=== PATIENT | male | born 1965 | race Caucasian/White ===

== ENCOUNTER 2018-08-21 11:57 | Emergency (ER) | payer MEDICAID ==
[~2018-08-21] VITALS: Ht 165.1 cm; Wt 70.5 kg
[2018-08-21 12:03] VITALS: BP 139/80; PULSE 80; RESP 18; Ht 165.1 cm; Wt 70.5 kg
[2018-08-21] MEDS ORDERED: HYDR-4011 PO (13:59)
[2018-08-21] MEDS ORDERED: NAPR-985 PO (13:59)
[2018-08-21] MEDS ORDERED: CEPH-443 PO (13:59)
[2018-08-21] MEDS ORDERED: SULF1TAB31 PO (13:59)
--- NOTE | 2018-08-21 14:18 | ERD ---
ER Documentation Chief Complaint Chief Complaint LEFT BUTTOCK WOUND PROBLEM HPI 52-year-old male presenting for wound on left buttock. Patient was seen by an [facility] at [facility] a week ago and had incision and drainage performed at that time. Patient has been taking medication but does not recall the name of the medications. He states he had a incision and drainage performed and has continued having pain at the localized site. Denies other medical problems. NKDA. Surgical history denies. Social history denies ROS All systems reviewed and are negative except as per history of present illness. Medications Home Meds Active Scripts Naproxen* (Naprosyn*) 500 Mg Tablet, 500 MG PO BID PRN for PAIN AND/OR INFLAMMATION, #30 TAB Prov:JINA ABURTO PA-C 08/21/18 Hydrocodone/Acetaminophen ([place] 5-325 Tablet) 1 Each Tablet, 1 TAB PO Q6H PRN for PAIN, #7 TAB Prov:JINA ABURTO PA-C 08/21/18 Cephalexin* (Keflex*) 500 Mg Capsule, 500 MG PO QID for 7 Days, CAP Prov:JINA ABURTO PA-C 08/21/18 Sulfamethoxazole/Trimethoprim* (Bactrim Ds* Tablet) 1 Each Tablet, 1 TAB PO BID, #14 TAB Prov:JINA ABURTO PA-C 08/21/18 FmHx Family History: No diabetes, No coronary disease, No other Physical Exam Vitals Vital Signs Date Temp Pulse Resp B/P (MAP) Pulse Ox O2 O2 Flow FiO2 Time Delivery Rate 08/21/18 98.9 80 18 139/80 99 12:03 (99) Physical Exam GENERAL: The patient is well-appearing, well-nourished, in no acute distress CHEST: Clear to auscultation bilaterally. There are no rales, wheezes or rhonchi. HEART: Regular rate and rhythm. No murmurs, clicks, rubs or gallops. EXTREMITIES: Equal pulses bilaterally. There is no peripheral clubbing, cyanosis or edema. No focal swelling or erythema. Full range of motion. NEUROLOGIC: Motor strength in all 4 extremities with 5 out of 5 strength. Sensation grossly intact. SKIN: Previous incision and drainage site noted with large ulceration of the left buttock. No purulence. No active bleeding. No surrounding erythema, lymphatic streaking or induration. Procedures/MDM Wound cleaned and dressed with Xeroform and dry packing. MDM: 52-year-old male presenting for a ulceration formation noted of the left buttock. There is no signs of worsening infection. Because this is such a large region I will treat with continue antibiotics to prevent further infection. Patient is recommended follow-up with irritation clinic to ensure adequate wound care follow. Patient is discharged with strict precautions. Patient is discharged with strict ER precautions. All questions answered at discharge Departure Diagnosis: Primary Impression: Encounter for wound care Condition: Stable Patient Instructions: Wound Care Referrals: [facility] Additional Instructions: FOLLOW UP WITH YOUR PRIMARY CARE PHYSICIAN TOMORROW.Return to this facility if you are not improving as expected. JINA ABURTO PA-C Aug 21, 2018 14:17
== END 2018-08-21 15:11 | disposition home or self-care (01) ==
LOC: FTE 11:57
DX: Z48.00 Encounter for change or removal of nonsurgical wound dressing (principal)
CPT/HCPCS: 99283

== ENCOUNTER 2018-08-28 09:56 | Emergency (ER) | payer MEDICAID ==
[~2018-08-28] VITALS: Ht 172.7 cm; Wt 71.4 kg
[~2018-08-28 09:56] MED LIST: CEPH-443 PO; HYDR-4011 PO; NAPR-985 PO; SULF1TAB31 PO
[2018-08-28 10:05] VITALS: BP 118/57; PULSE 90; RESP 18; Ht 172.7 cm; Wt 71.4 kg
[2018-08-28] MEDS ORDERED: SOD CHLORIDE 0.9% 1,000 ML IV STA (11:10)
[2018-08-28] MEDS ORDERED: ONDANSETRON 4 MG INJ IV STA (11:10)
[2018-08-28] MEDS ORDERED: morphine 4 MG/ML VIAL IV STA (11:10)
[2018-08-28] MEDS ORDERED: IBUP-1542 PO (11:24)
[2018-08-28] MEDS ORDERED: LIDOCAINE/MYLANTA 40 ML BTL PO ONE (11:30)
--- NOTE | 2018-08-28 14:07 | ERD ---
ER Documentation Chief Complaint Chief Complaint FOR RECHECK ON LT BUTTOCK WOUND HPI 52-year-old male no significant past medical history presenting the emergency department for recheck of ulceration noted on the left buttock. He reports associated pain which is rated 2/10 in severity and worse with sitting. He de nies any fevers or chills. He took no medication for relief of symptoms. He is currently taking Keflex and Bactrim. ROS All systems reviewed and are negative except as per history of present illness. Medications Home Meds Active Scripts Ibuprofen* (Motrin*) 600 Mg Tab, 600 MG PO Q6, #30 TAB Prov:MIRNA BOONE PA-C 08/28/18 Naproxen* (Naprosyn*) 500 Mg Tablet, 500 MG PO BID PRN for PAIN AND/OR INFLAMMATION, #30 TAB Prov:JINA ABURTO PA-C 08/21/18 Hydrocodone/Acetaminophen ([place] 5-325 Tablet) 1 Each Tablet, 1 TAB PO Q6H PRN for PAIN, #7 TAB Prov:JINA ABURTO PA-C 08/21/18 Cephalexin* (Keflex*) 500 Mg Capsule, 500 MG PO QID for 7 Days, CAP Prov:JINA ABURTO PA-C 08/21/18 Sulfamethoxazole/Trimethoprim* (Bactrim Ds* Tablet) 1 Each Tablet, 1 TAB PO BID, #14 TAB Prov:JINA ABURTO PA-C 08/21/18 PMhx/Soc Medical and Surgical Hx: pt denies Medical Hx, pt denies Surgical Hx Hx Alcohol Use: No Hx Substance Use: No FmHx Family History: No diabetes Physical Exam Vitals Vital Signs Date Temp Pulse Resp B/P (MAP) Pulse Ox O2 O2 Flow FiO2 Time Delivery Rate 08/28/18 98.7 90 18 118/57 99 10:05 (77) Physical Exam Const: No acute distress Head: Atraumatic Eyes: Normal Conjunctiva ENT: Normal External Ears, Nose and Mouth. Neck: Full range of motion. No meningismus. Resp: No respiratory distress. Skin: There is an approximate 3 cm x 3 cm ulceration noted to the left superior buttock. There is no significant surrounding erythema or lymphatic streaking. Ext: No cyanosis, or edema Neur: Awake and alert Psych: Normal Mood and Affect Results 24 hrs Current Medications Medications Dose Sig/Jim Start Time Status Last (Trade) Ordered Route PRN Stop Time Admin Dose Reason Admin Sodium 1,000 ml @ Q1H STAT 08/28/18 DC Chloride 1,000 mls/hr IV 11:10 08/28/18 11:15 Morphine 4 mg ONCE STAT 08/28/18 DC Sulfate IV 11:10 (morphine) 08/28/18 11:15 Ondansetron 4 mg ONCE STAT 08/28/18 DC HCl (Zofran IV 11:10 Inj) 08/28/18 11:15 40 ml ONCE ONCE 08/28/18 DC Miscellaneous PO 11:30 Medication 08/28/18 11:30 (Gi Cocktail (2)) Procedures/MDM 52-year-old male presenting to the emergency department for wound care. The wound was dressed appropriately in sterile fashion using Xeroform and nonstick dressing. Wound shows no evidence of infection, foreign body, neurologic injury, vascular injury, open joint or tendon laceration. No evidence of significant disseminated cellulitis or sepsis or other emergencies. Patient appropriate for outpatient follow up. Departure Diagnosis: Primary Impression: Encounter for wound care Condition: Fair Patient Instructions: Wound Care Additional Instructions: Return to this facility in 2 DAYS for a follow-up exam.Return sooner if your condition worsens. MIRNA BOONE PA-C Aug 28, 2018 14:07
== END 2018-08-28 11:45 | disposition home or self-care (01) ==
LOC: FTE 09:56
DX: Z48.01 Encounter for change or removal of surgical wound dressing (principal)
CPT/HCPCS: 99281; J7030

== ENCOUNTER 2018-09-04 14:09 | Emergency (ER) | payer MEDICAID ==
[~2018-09-04] VITALS: Ht 160 cm; Wt 70.4 kg
[~2018-09-04 14:09] MED LIST changes: +IBUP-1542 PO
[2018-09-04 15:29] VITALS: Ht 160 cm; Wt 70.4 kg
--- NOTE | 2018-09-04 17:38 | ERD ---
ER Documentation Chief Complaint Chief Complaint 08/07 LEFT BUTTOCK SX; PT THINKS HE HAS INFECTION HPI 52-year-old male, previously healthy, presents to the emergency department, for wound check after an abscess drainage performed on 08/07/18. The patient refers feeling better except for mild pain. No fever, no chills, the patient finished a 10 days course of Bactrim and cephalexin without side effects. ROS All systems reviewed and are negative except as per history of present illness. Medications Home Meds Active Scripts Ibuprofen* (Motrin*) 600 Mg Tab, 600 MG PO Q6, #30 TAB Prov:MIRNA BOONE PA-C 08/28/18 Naproxen* (Naprosyn*) 500 Mg Tablet, 500 MG PO BID PRN for PAIN AND/OR INFLAMMATION, #30 TAB Prov:JINA ABURTO PA-C 08/21/18 Hydrocodone/Acetaminophen ([place] 5-325 Tablet) 1 Each Tablet, 1 TAB PO Q6H PRN for PAIN, #7 TAB Prov:JINA ABURTO PA-C 08/21/18 Cephalexin* (Keflex*) 500 Mg Capsule, 500 MG PO QID for 7 Days, CAP Prov:JINA ABURTO PA-C 08/21/18 Sulfamethoxazole/Trimethoprim* (Bactrim Ds* Tablet) 1 Each Tablet, 1 TAB PO BID, #14 TAB Prov:JINA ABURTO PA-C 08/21/18 Allergies Allergies: Coded Allergies: No Known Allergy (Unverified , 09/04/18) PMhx/Soc Medical and Surgical Hx: pt denies Medical Hx, pt denies Surgical Hx Hx Alcohol Use: No Hx Substance Use: No Physical Exam Vitals Vital Signs Date Temp Pulse Resp B/P (MAP) Pulse Ox O2 O2 Flow FiO2 Time Delivery Rate 09/04/18 99.1 87 16 123/86 99 15:29 (98) Physical Exam Const: No acute distress Head: Atraumatic Eyes: Normal Conjunctiva ENT: Normal External Ears, Nose and Mouth. Neck: Full range of motion. No meningismus. Resp: Clear to auscultation bilaterally Cardio: Regular rate and rhythm, no murmurs Abd: Soft, non tender, non distended. Normal bowel sounds Skin: 3 cm surgical incision in the left gluteal area, clean, dry and intact. Back: No midline or flank tenderness Ext: No cyanosis, or edema Neur: Awake and alert Psych: Normal Mood and Affect Procedures/MDM Adequate pain control, no fever, no chills, good compliance with medications no side effects. The patient was evaluated for infection and neurovascular compromise. The wound was clean and irrigated with normal saline and dressing applied. Patient is stable, with adequate healing process, okay to discharge home, medication adherence reinforced. some side effects of prescribed medications (headache, rash, nausea, vomiting, diarrhea, drowsiness, habituation, bleeding, hypertension, interactions with other medications) were reviewed. The patient was instructed to follow up with the primary care provider in the next 48h. If symptoms persist, worsen or new symptoms develop, then patient should return to the ED immediately. Instructions explained and given directly by me to the patient with acknowledgment and demonstrated understanding. Disclaimer: Inadvertent spelling and grammatical errors are likely due to EHR/dictation software use and do not reflect on the overall quality of patient care. Also, please note that the electronic time recorded on this note does not necessarily reflect the actual time of the patient encounter. Departure Diagnosis: Primary Impression: Encounter for wound re-check Condition: Stable Patient Instructions: Wound Care Additional Instructions: Muchas fadumo por [facility] para wade servicio. Esperamos que en wade visita a la cedric de emergencia wade problema medico haya sido solucionado y que se sienta mucho mejor. Para estar seguros que wade mejoria sigue en proceso, le pedimos el favor de hacer erin petros de seguimiento medico con wade doctor primario en los proximos 2-4 appiah. Lleve con usted estos documentos y las medicinas recetadas. Si be sintomas empeoran, NO SE ESPERE, por favor regrese a cedric de emergencia INMEDIATAMENTE. En az que usted no tenga un mdico de atencin primaria: Llame al mdico o clnica comunitaria de referencia que aparece abajo simeon las horas de consultorio para hacer erin petros para que le vean. CLINICAS: [facility] [phone] [facility] [phone] [facility] [phone] [facility] [phone] [place] [phone] [facility] [phone] JAIRON MAZARIEGOS MD Sep 04, 2018 17:38
== END 2018-09-04 17:59 | disposition home or self-care (01) ==
LOC: FTE 14:09
DX: Z48.01 Encounter for change or removal of surgical wound dressing (principal)
CPT/HCPCS: 99281